=== PATIENT | female | born 1985 | race Caucasian/White ===

== ENCOUNTER 2020-04-20 17:54 | Emergency (ER) | payer SELFPAY ==
[~2020-04-20] VITALS: Ht 170.2 cm; Wt 104.5 kg
--- NOTE | 2020-04-20 19:24 | ED.ADGEN ---
Past Medical History Past Medical History: Hypothyroid, Other Additional Past Medical Histor: Iron deficiency, Fluid retention Past Surgical History: No Surgical History Smoking Status: Never Smoker Alcohol Use: None Drug Use: None General Adult EDM: Chief Complaint: UPPER EXTREMITY PAIN HPI: HPI: Patient is a 34 year old female with pain in right antecubital fossa after d onating plasma earlier today. Says the pain started when they tried to insert the needle and the nurse had a difficult time accessing the vein. Says the pain is sharp and throbbing and feels like it is into the elbow. Pain is improved with ice. Patient also complain about 1 year of lower extremity edema. Was put on furosemide without improvement. Review of Systems: Review of Systems: Constitutional: Denies fever or chills. [] Eyes: Denies change in visual acuity. [] HENT: Denies nasal congestion or sore throat. [] Respiratory: Denies cough or shortness of breath. [] Cardiovascular: Denies chest pain but has lower extremity edema GI: Denies abdominal pain, nausea, vomiting, bloody stools or diarrhea. [] : Denies dysuria. [] Musculoskeletal: Denies back pain or joint pain. [] Right antecubital fossa. Integument: Denies rash. [] Neurologic: Denies headache, focal weakness or sensory changes. [] Endocrine: Denies polyuria or polydipsia. [] Lymphatic: Denies swollen glands. [] Psychiatric: Denies depression or anxiety. [] Allergies: Allergies: Allergies Coded Allergies Type Severity Reaction Last Updated Verified No Known Drug Allergies 07/15/15 No Physical Exam: PE: Constitutional: Well developed, well nourished, no acute distress, non-toxic appearance. [] HENT: Normocephalic, atraumatic, bilateral external ears normal, oropharynx moist, no oral exudates, nose normal. [] Eyes: PERRLA, EOMI, conjunctiva normal, no discharge. [] Neck: Normal range of motion, no tenderness, supple, no stridor. [] Cardiovascular:Heart rate regular rhythm, no murmur [] bilateral lower extremity pitting edema, symmetric pulses Lungs & Thorax: Bilateral breath sounds clear to auscultation [] Abdomen: Bowel sounds normal, soft, no tenderness, no masses, no pulsatile masses. [] Skin: Warm, dry, no erythema, no rash. [] Back: No tenderness, no CVA tenderness. [] Extremities: No tenderness, no cyanosis, no clubbing, ROM intact, bilateral lower extremity edema Neurologic: Alert and oriented X 3, normal motor function, normal sensory function, no focal deficits noted. [] Psychologic: Affect normal, judgement normal, mood normal. [] Current Patient Data: Labs: Laboratory Tests Test 04/20/20 20:15 04/20/20 20:50 Urine Collection Type Void Urine Color Yellow Urine Clarity Clear Urine pH 7.0 (<5.0-8.0) Urine Specific [place] 1.015 (1.000-1.030) Urine Protein Negative mg/dL (NEG-TRACE) Urine Glucose (UA) Negative mg/dL (NEG) Urine Ketones (Stick) Negative mg/dL (NEG) Urine Blood Negative (NEG) Urine Nitrite Negative (NEG) Urine Bilirubin Negative (NEG) Urine Urobilinogen Dipstick 0.2 mg/dL (0.2 mg/dL) Urine Leukocyte Esterase Negative (NEG) Urine RBC 0 /HPF (0-2) Urine WBC Rare /HPF (0-4) Urine Squamous Epithelial Cells Few /LPF Urine Bacteria Moderate /HPF (0-FEW) White Blood Count 10.3 x10^3/uL (4.0-11.0) Red Blood Count 3.89 x10^6/uL (3.50-5.40) Hemoglobin 11.4 g/dL (12.0-15.5) L Hematocrit 33.6 % (36.0-47.0) L Mean Corpuscular Volume 86 fL (79-100) Mean Corpuscular Hemoglobin 29 pg (25-35) Mean Corpuscular Hemoglobin Concent 34 g/dL (31-37) Red Cell Distribution Width 13.9 % (11.5-14.5) Platelet Count 213 x10^3/uL (140-400) Neutrophils (%) (Auto) 70 % (31-73) Lymphocytes (%) (Auto) 22 % (24-48) L Monocytes (%) (Auto) 6 % (0-9) Eosinophils (%) (Auto) 1 % (0-3) Basophils (%) (Auto) 1 % (0-3) Neutrophils # (Auto) 7.2 x10^3/uL (1.8-7.7) Lymphocytes # (Auto) 2.3 x10^3/uL (1.0-4.8) Monocytes # (Auto) 0.6 x10^3/uL (0.0-1.1) Eosinophils # (Auto) 0.1 x10^3/uL (0.0-0.7) Basophils # (Auto) 0.1 x10^3/uL (0.0-0.2) D-Dimer (Radha) 0.34 ug/mlFEU (0.00-0.50) Sodium Level 141 mmol/L (136-145) Potassium Level 3.7 mmol/L (3.5-5.1) Chloride Level 104 mmol/L (98-107) Carbon Dioxide Level 24 mmol/L (21-32) Anion Gap 13 (6-14) Blood Urea Nitrogen 12 mg/dL (7-20) Creatinine 0.7 mg/dL (0.6-1.0) Estimated GFR (Cockcroft-Gault) 95.8 BUN/Creatinine Ratio 17 (6-20) Glucose Level 97 mg/dL (70-99) Calcium Level 8.6 mg/dL (8.5-10.1) Total Bilirubin 0.4 mg/dL (0.2-1.0) Aspartate Amino Transferase (AST) 16 U/L (15-37) Alanine Aminotransferase (ALT) 23 U/L (14-59) Alkaline Phosphatase 40 U/L (46-116) L IB-Ibq-L-Type Natriuretic Peptide 82 pg/mL (0-124) Total Protein 6.0 g/dL (6.4-8.2) L Albumin 3.2 g/dL (3.4-5.0) L Albumin/Globulin Ratio 1.1 (1.0-1.7) Thyroid Stimulating Hormone (TSH) 11.033 uIU/mL (0.358-3.74) H Laboratory Tests 04/20/20 20:50 Laboratory Tests 04/20/20 20:50 Vital Signs: Vital Signs Date Time Temp Pulse Resp B/P (MAP) Pulse Ox O2 Delivery O2 Flow Rate FiO2 04/20/20 18:05 97.7 97 18 142/92 (109) 99 Room Air 97.7 EKG: EKG: [] Heart Score: Risk Factors: Risk Factors: DM, Current or recent (<one month) smoker, HTN, HLP, family history of CAD, obesity. Risk Scores: Score 0 - 3: 2.5% MACE over next 6 weeks - Discharge Home Score 4 - 6: 20.3% MACE over next 6 weeks - Admit for Clinical Observation Score 7 - 10: 72.7% MACE over next 6 weeks - Early Invasive Strategies Radiology/Procedures: Radiology/Procedures: PROCEDURE: VENOUS UPPER EXTREMITY RIGHT Right upper Extremity Venous Doppler Ultrasound History: right arm pain Comparison: None Procedure: Color flow, duplex, spectral analysis and 2D images are obtained with and without compression in the area of the deep and superficial venous structures of the upper , specifically the axillary, brachials, radial and ulnar deep veins and the superficial basilic and cephalic veins. Color Doppler and venous waveform analysis was also applied to the left jugular and subclavian vein. Findings: There is normal duplex flow, color flow and compressibility of all visualized vein segments. No evidence of deep venous thrombus is present. Impression: Normal venous Doppler ultrasound with no evidence of DVT. [] Course & Med Decision Making: Course & Med Decision Making Pertinent Labs and Imaging studies reviewed. (See chart for details) Patient is taking a low-dose of levothyroxine does not know dose. Discussed her TSH is elevated and she will need to follow-up with a primary for further evaluation and possible increase in her medication. Work-up otherwise unremarkable. Arm symptoms improving and localized, no compromise of distal extremity or signs of hematoma. Patient requesting a prescription for her inhaler refill for asthma [] Dragon Disclaimer: Dragon Disclaimer: This electronic medical record was generated, in whole or in part, using a voice recognition dictation system. Departure Departure Impression: Primary Impression: Arm pain Additional Impression: Elevated TSH Disposition: 01 DC HOME SELF CARE/HOMELESS Condition: STABLE Referrals: NO PCP (PCP) Patient Instructions: Peripheral Edema Additional Instructions: [facility] [address] [place] [address] [facility] [address] [place] [address] [place] [address] [facility] [address] [address] [facility] [address] [place] [address] [facility] [place] [address] [place] [address] [address] [place] [address] [facility] [address] [place] [address] [facility] [address] [place] [address] [facility] [address] [place] [address] Scripts Albuterol Sulfate (PROAIR HFA INHALER) 8.5 Gm Hfa.aer.ad 2 PUFF IH PRN Q4-6HRS PRN for wheezing for 21 Days, #1 INHALER 0 Refills Prov: SANKET GARCIA MD 04/20/20 Problem Qualifiers SANKET GARCIA MD Apr 20, 2020 19:24
--- NOTE | 2020-04-20 20:02 | RAD ---
Right upper Extremity Venous Doppler Ultrasound History: right arm pain Comparison: None Procedure: Color flow, duplex, spectral analysis and 2D images are obtained with and without compression in the area of the deep and superficial venous structures of the upper , specifically the axillary, brachials, radial and ulnar deep veins and the superficial basilic and cephalic veins. Color Doppler and venous waveform analysis was also applied to the left jugular and subclavian vein. Findings: There is normal duplex flow, color flow and compressibility of all visualized vein segments. No evidence of deep venous thrombus is present. Impression: Normal venous Doppler ultrasound with no evidence of DVT. Electronically signed by: Jan Riggins III, MD (04/20/2020 7:59 PM) [facility]
[2020-04-20 20:23] LABS: BILIRUBIN,URINE NEGATIVE (NEG); CLARITY,URINE CLEAR; COLOR,URINE YELLOW; NITRITE,URINE NEGATIVE (NEG); PROTEIN,URINE NEGATIVE (NEG-TRACE); UROBILINOGEN,URINE 0.2 mg/dL (0.2 mg/dL)
[2020-04-20 20:29] LABS: BACTERIA,URINE MODERATE /HPF (0-FEW)
[2020-04-20 20:30] LABS: RBC,URINE 0 /HPF (0-2); WBC,URINE RARE /HPF (0-4)
[2020-04-20 21:00] LABS: BASO # 0.1 x10^3/uL (0.0-0.2); BASO % 1 % (0-3); EOS # 0.1 x10^3/uL (0.0-0.7); EOS % 1 % (0-3); HEMATOCRIT 33.6 % (36.0-47.0); HEMOGLOBIN 11.4 g/dL (12.0-15.5); LYMPH # 2.3 x10^3/uL (1.0-4.8); LYMPH % 22 % (24-48); MEAN CORPUSCULAR HEMOGLOBIN 29 pg (25-35); MEAN CORPUSCULAR HGB CONC 34 g/dL (31-37); MEAN CORPUSCULAR VOLUME 86 fL (79-100); MONO # 0.6 x10^3/uL (0.0-1.1); MONO % 6 % (0-9); NEUT # 7.2 x10^3/uL (1.8-7.7); NEUT % 70 % (31-73); PLATELET COUNT 213 x10^3/uL (140-400); RED BLOOD COUNT 3.89 x10^6/uL (3.50-5.40); RED CELL DISTRIBUTION WIDTH 13.9 % (11.5-14.5); WHITE BLOOD COUNT 10.3 x10^3/uL (4.0-11.0)
[2020-04-20 21:27] LABS: CALCIUM 8.6 mg/dL (8.5-10.1); CREATININE 0.7 mg/dL (0.6-1.0); GFR 95.8; POTASSIUM 3.7 mmol/L (3.5-5.1)
[2020-04-20 21:32] LABS: ALBUMIN 3.2 g/dL (3.4-5.0); ALBUMIN/GLOBULIN RATIO 1.1 (1.0-1.7); TOTAL BILIRUBIN 0.4 mg/dL (0.2-1.0)
[2020-04-20 21:58] VITALS: BP 131/74
[2020-04-20] MEDS ORDERED: ALBU2.5V8 IH (22:00)
== END 2020-04-20 22:08 | disposition home or self-care (01) ==
LOC: ER 17:54
DX: M79.601 Pain in right arm (principal); R60.0 Localized edema; R79.89 Other specified abnormal findings of blood chemistry; E03.9 Hypothyroidism, unspecified
CPT/HCPCS: 36415; 80053; 81001; 83880; 84443; 85025; 85379; 87086; 93971; 99284

== ENCOUNTER 2020-07-07 12:41 | Emergency (ER) | payer BC, OTHER ==
[~2020-07-07] VITALS: Ht 167.6 cm; Wt 109.5 kg
[~2020-07-07 12:41] MED LIST: ALBU2.5V8 IH
[2020-07-07 12:57] VITALS: BP 135/78
--- NOTE | 2020-07-07 13:32 | PHYS DOC ---
Past Medical History Past Medical History: Hypothyroid, Other Additional Past Medical Histor: Iron deficiency, Fluid retention Past Surgical History: Other Additional Past Surgical Histo: left arm fx repair Smoking Status: Never Smoker Alcohol Use: None Drug Use: None General Adult EDM: Chief Complaint: HAND PROBLEM HPI: HPI: Patient is a 34 year old female who presents to the ED today complaining of 5 out of 10 left hand pain mostly on the lateral aspect of the hand that began yesterday after she got hit by a chair. 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 She states one of the children was about to throw a chair at the window, she states she blocked the chair and got hit by the chair. Patient is right-handed. States the pain is worse on touching her hand and range of motion. Describes the pain as sharp and intermittent. Denies anything specifically relieving the pain. Review of Systems: Review of Systems: Constitutional: Denies fever or chills. [] Musculoskeletal: reports right hand pain Integument: Denies rash. [] Neurologic: Denies headache, focal weakness or sensory changes. [] Psychiatric: Denies depression or anxiety. [] Heart Score: Risk Factors: Risk Factors: DM, Current or recent (<one month) smoker, HTN, HLP, family history of CAD, obesity. Risk Scores: Score 0 - 3: 2.5% MACE over next 6 weeks - Discharge Home Score 4 - 6: 20.3% MACE over next 6 weeks - Admit for Clinical Observation Score 7 - 10: 72.7% MACE over next 6 weeks - Early Invasive Strategies Allergies: Allergies: Allergies Coded Allergies Type Severity Reaction Last Updated Verified No Known Drug Allergies 07/07/20 No Physical Exam: PE: Constitutional: Well developed, well nourished, no acute distress, non-toxic appearance. [] Skin: Warm, dry, no erythema, no rash. [] Back: No tenderness, no CVA tenderness. [] Extremities: Left hand with no obvious deformity. Mild soft tissue swelling noted on the dorsal aspect of the hand with tenderness diffusely throughout the dorsal aspect of the hand worse on the index finger and thumb mid phalanx. Full range of motion to the left hand and fingers. +2 left radial pulse. Cap refill less than 2 seconds in left fingers. Adequate radial, medial, ulnar sensation to the left hand. Neurologic: Alert and oriented X 3, normal motor function, normal sensory function, no focal deficits noted. [] Psychologic: Affect normal, judgement normal, mood normal. [] Current Patient Data: Vital Signs: Vital Signs Date Time Temp Pulse Resp B/P (MAP) Pulse Ox O2 Delivery O2 Flow Rate FiO2 07/07/20 12:57 98.0 76 18 135/78 (97) 99 Room Air 98.0 EKG: EKG: [] Radiology/Procedures: Radiology/Procedures: []PROCEDURE: HAND LEFT 3V EXAMINATION: XR HAND_LEFT 3 VIEWS CLINICAL HISTORY: Left hand pain between 1st and 2nd digit. Unable to straighten fingers TECHNIQUE: XR HAND_LEFT 3 VIEWS Number of Images/Views: 3 COMPARISON: None FINDINGS: Joint spaces and alignment maintained. No acute fracture. Subcutaneous edema along the dorsal hand. IMPRESSION: No acute osseous abnormality left hand. Electronically signed by: Emiliano Zhang DO (07/07/2020 1:44 PM) [id number] DICTATED and SIGNED BY: EMILIANO ZHANG DO DATE: 07/07/20 [id number] 0 Course & Med Decision Making: Course & Med Decision Making Pertinent Labs and Imaging studies reviewed. (See chart for details) This is a 34-year-old female patient presented to the ED today with left hand injury, patient got hit by a chair. Left hand x-rays interpreted by radiologist are negative for any acute findings. Eber bandage applied to the left hand by me, neurovascular exam is intact. Ice elevation encouraged. Follow-up with orthopedic doctor in 1 week if pain persist. OTC pain relievers recommended. Dragon Disclaimer: Rolan Disclaimer: This electronic medical record was generated, in whole or in part, using a voice recognition dictation system. Departure Departure Impression: Primary Impression: Contusion of left hand Qualified Codes: S60.222A - Contusion of left hand, initial encounter Disposition: 01 DC HOME SELF CARE/HOMELESS Condition: STABLE Referrals: NO PCP (PCP) TAYLOR CABRAL MD follow up in 1-2 weeks Patient Instructions: Contusion, [id number] Additional Instructions: You have left hand contusion, your left hand x-rays are negative for any acute findings. Try to ice and elevate the extremity. You can take [id number] pain relievers especially anti-inflammatories like ibuprofen as needed for pain. Follow-up with orthopedic doctor or your own doctor in 1 to 2 weeks if pain persist ONDINA SOTO APRN Jul 07, 2020 13:32
--- NOTE | 2020-07-07 13:46 | RAD ---
EXAMINATION: XR HAND_LEFT 3 VIEWS CLINICAL HISTORY: Left hand pain between 1st and 2nd digit. Unable to straighten fingers TECHNIQUE: XR HAND_LEFT 3 VIEWS Number of Images/Views: 3 COMPARISON: None FINDINGS: Joint spaces and alignment maintained. No acute fracture. Subcutaneous edema along the dorsal hand. IMPRESSION: No acute osseous abnormality left hand. Electronically signed by: Emiliano Clark DO (07/07/2020 1:44 PM) [id number]
== END 2020-07-07 14:26 | disposition home or self-care (01) ==
LOC: ER 12:41
DX: S60.222A Contusion of left hand, initial encounter (principal); E03.9 Hypothyroidism, unspecified; W22.03XA Walked into furniture, initial encounter; Y93.89 Activity, other specified; Y92.89 Other specified places as the place of occurrence of the external cause; Y99.8 Other external cause status
CPT/HCPCS: 73130; 99283

== ENCOUNTER 2020-10-20 16:52 | Emergency (ER) | payer SELFPAY ==
[~2020-10-20] VITALS: Ht 165.1 cm; Wt 90.9 kg
--- NOTE | 2020-10-20 18:10 | PHYS DOC ---
Past Medical History Past Medical History: Hypothyroid, Other Additional Past Medical Histor: Iron deficiency, Fluid retention Past Surgical History: Other Additional Past Surgical Histo: left arm fx repair Smoking Status: Never Smoker Alcohol Use: None Drug Use: None General Adult EDM: Chief Complaint: SHORTNESS OF BREATH HPI: HPI: Patient is a 35-year-old female presenting for URI-like symptoms. Reports she was exposed to young niece 2 days ago that had similar URI-like symptoms and ever since, she reports development of rhinorrhea, postnasal drip, dry nonproductive cough, and fatigue. She reports she did have an isolated fever taken earlier today that was 101.0, this resolved with acle-tam-mnyiaut Sudafed. She is otherwise healthy, no known medical issues, does not take any medications on a daily basis, does not smoke, no other drug use, no history or risk factors for blood clots such as estrogen use, recent long distance travel, hemoptysis etc. No personal history of passing out with sports, no family history of cardiac disease Review of Systems: Review of Systems: Fourteen body systems of review of systems have been reviewed. See HPI for pertinent positives and negative responses, other hutton all other systems are negative, non-pertinent or non-contributory Heart Score: C/O Chest Pain: No HEART Score for Chest Pain: HEART Score for Chest Pain Response (Comments) Value History Slighlty/Non-Suspicious 0 ECG Normal 0 Age < 45 0 Risk Factors No Risk Factors 0 Total 0 Risk Factors: Risk Factors: DM, Current or recent (<one month) smoker, HTN, HLP, family history of CAD, obesity. Risk Scores: Score 0 - 3: 2.5% MACE over next 6 weeks - Discharge Home Score 4 - 6: 20.3% MACE over next 6 weeks - Admit for Clinical Observation Score 7 - 10: 72.7% MACE over next 6 weeks - Early Invasive Strategies Allergies: Allergies: Allergies Coded Allergies Type Severity Reaction Last Updated Verified No Known Drug Allergies 07/07/20 No Physical Exam: PE: General: Appears well, non toxic, and comfortable Skin: Warm, dry. Normal for ethnicity. HEENT: Atraumatic. PERRLA. Rhinorrhea and congestion. Nasal turbinates boggy b/l. Moist mucous membranes. Uvula midline. Maintaining secretions. No phonation changes. Neck: Trachea midline. Normal ROM. No stridor. Respiratory: Normal WOB. CTAB w/o w/r/r. No tachypnea. Cardiovascular: Regular rate and rhythm. Normal peripheral perfusion. Abdomen: Soft. Non tender. No distension. Back: Normal ROM. Musculoskeletal: No swelling or deformity. Neuro: Alert and oriented x 4. MAEE. Lymph: No cervical LAD. Psych: Normal affect and mood. Current Patient Data: Labs: Laboratory Tests Test 10/20/20 17:53 POC Urine HCG, Qualitative Hcg negative (Negative) EKG: EKG: EKG ordered and interpreted by myself at 1850 hrs. as sinus rhythm at 81 bpm, unremarkable intervals, no axis deviation, no ischemic findings, no STEMI Radiology/Procedures: Radiology/Procedures: XR CHEST 1V Clinical History: Reason: shob / Spl. Instructions: / History: Technique: AP view of the chest was obtained at 10/20/2020 6:49 PM. Comparison: None. Findings: The cardiomediastinal silhouette is normal. The pulmonary vasculature is normal. There is subtle patchy opacity in the lower lungs. The pleural margins are clear. Impression: No evidence of an acute cardiopulmonary process. Electronically signed by: Jan Riggins III, MD (10/20/2020 7:03 PM) [facility] Course & Med Decision Making: Course & Med Decision Making VSS. HPI and PE non-concerning for emergent/surgical issues, likely viral syndrome ER workup unremarkable. Offered COVID-19 testing, patient tested and results pending. Self-quarantine instructions given with strict return precautions Rolan Disclaimer: Rolan Disclaimer: This electronic medical record was generated, in whole or in part, using a voice recognition dictation system. PERC Rule for PE PERC Rule for PE Response (Comments) Value Age > 50: No 0 HR > 100: No 0 Sa02 on room air <95%: No 0 Unilateral leg swelling: No 0 Hemoptysis: No 0 Recent surgery or trauma: No 0 Prior PE or DVT: No 0 Hormone use: No 0 Total 0 Departure Departure Impression: Primary Impression: Viral syndrome Additional Impressions: Person under investigation for COVID-19 Fever Disposition: HOME / SELF CARE / HOMELESS Condition: STABLE Referrals: NO PCP (PCP) Patient Instructions: Viral Syndrome Additional Instructions: You were seen for fever, upper respiratory symptoms, and possible infection with COVID-19. Your physical exam was reassuring. Your chest x-ray was normal. We tested you for COVID-19 but this test does not come back for 1 to 2 days. In the meantime you need to quarantine yourself at home away from all other individuals, especially those who are elderly or have any other chronic health issues or an immunocompromised status. As disclose, there is little indication for further diagnostic work-up in ER such as laboratory analysis and further diagnostic studies for pathology such as blood clots etc. With that said, this might be an acute presentation of more concerning pathology and so, if your symptoms worsen do not hesitate to come back for repeat evaluation. You should return to the ED if you develop worsening cough, shortness of breath, chest pain, or any other new or concerning symptoms. Alternate Tylenol and ibuprofen as needed for body aches and pain. If your test does come back positive you need to quarantine yourself for 10 days until symptom-free. You should make sure to drink plenty of fluids and get plenty of rest. Scripts Albuterol Sulfate (PROAIR HFA INHALER) 8.5 Gm Hfa.aer.ad 2 PUFF IH PRN Q4-6HRS PRN for wheezing for 21 Days, #1 INHALER 0 Refills Prov: NUHA ALCANTAR DO 10/20/20 Fluticasone Propionate (Flonase Allergy Relief) 9.9 Ml [place].susp 2 SPRAYS NS DAILY, #1 ML Prov: NUHA ALCANTAR DO 10/20/20 Cetirizine Hcl (ZYRTEC) 10 Mg Tablet 1 TAB PO DAILY, #30 TAB 0 Refills Prov: NUHA ALCANTAR DO 10/20/20 NUHA ALCANTAR DO October 20, 2020 18:10
[2020-10-20] MEDS ORDERED: ACETAMINOPHEN 500 MG TABLET PO ONE (18:30)
--- NOTE | 2020-10-20 19:06 | RAD ---
XR CHEST 1V Clinical History: Reason: shob / Spl. Instructions: / History: Technique: AP view of the chest was obtained at 10/20/2020 6:49 PM. Comparison: None. Findings: The cardiomediastinal silhouette is normal. The pulmonary vasculature is normal. There is subtle patc hy opacity in the lower lungs. The pleural margins are clear. Impression: No evidence of an acute cardiopulmonary process. Electronically signed by: Jan Riggins III, MD (10/20/2020 7:03 PM) [facility]
--- NOTE | 2020-10-20 19:49 | EKG ---
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
[2020-10-20] MEDS ORDERED: ALBU2.5V8 IH (20:00)
[2020-10-20] MEDS ORDERED: CETI10TA74 PO (20:00)
[2020-10-20] MEDS ORDERED: FLUT9.9S NS (20:00)
[2020-10-20 20:20] VITALS: BP 120/72
--- NOTE | 2020-10-22 08:27 | NUR ---
IP: Attempted to contact pt concerning COVID results. No answer, left a voicemail to return the call.
--- NOTE | 2020-10-22 14:42 | NUR ---
IP: Informed pt of positive COVID test and the need to quarantine for 10 days. Pt verbalized understanding.
== END 2020-10-20 20:53 | disposition home or self-care (01) ==
LOC: ER 16:52
DX: U07.1 COVID-19 (principal); B34.9 Viral infection, unspecified; E03.9 Hypothyroidism, unspecified
CPT/HCPCS: 71045; 81025; 93005; 99285; U0003; U0005

== ENCOUNTER 2021-05-21 17:36 | Emergency (ER) | payer BC ==
[~2021-05-21] VITALS: Ht 162.6 cm; Wt 97.5 kg
[~2021-05-21 17:36] MED LIST changes: +CETI10TA74 PO; +FLUT9.9S NS
[2021-05-21 18:23] VITALS: BP 110/66
--- NOTE | 2021-05-21 19:14 | RAD ---
Right lower extremity venous Doppler ultrasound History: Reason: cellulitis RLE / Comparison: None. Procedure: Color flow Doppler, Doppler spectral analysis, and 2D images are obtained with and without compression in the area of the common femoral vein, superficial femoral vein - femoral vein junction , main femoral vein (superficial femoral vein) and popliteal vein. Veins of the proximal calf are als o imaged. Findings: There is normal color flow, augmentation, and compressibility of all visualized vein segments. No cory dence of deep venous thrombus is present. There are a few prominent but not pathologically enlarged right inguinal lymph nodes. No cortical thi ckening is seen. IMPRESSION: No evidence of right lower extremity deep venous thrombosis. Electronically signed by: Ray Benitez MD (05/21/2021 7:12 PM) [facility]
[2021-05-21] MEDS: LIDOCAINE 1% PF 2 ML VIAL. INJ ONE (19:37)
[2021-05-21] MEDS: ACYCLOVIR 200 MG CAPSULE. PO STA (19:37)
[2021-05-21] MEDS: cefTRIAXone IM 1 GM VIAL IM ONE (19:37)
[2021-05-21] MEDS ORDERED: NYST15PO9 TP (19:57)
[2021-05-21] MEDS ORDERED: CEPH500T PO (19:57)
[2021-05-21] MEDS ORDERED: SULF1TAB23 PO (19:57)
[2021-05-21] MEDS ORDERED: ACYC800T88 PO (19:57)
[2021-05-21] MEDS ORDERED: DOCO2CRE7 TP (19:57)
--- NOTE | 2021-05-21 19:58 | PHYS DOC ---
Past Medical History Past Medical History: Hypothyroid, Other Additional Past Medical Histor: Iron deficiency, Fluid retention ([employer]) Past Surgical History: Other Additional Past Surgical Histo: left arm fx repair ([employer] DES[employer]) Smoking Status: Never Smoker Alcohol Use: None Drug Use: None ([employer] DES[employer]) General Adult EDM: Chief Complaint: LOWER EXTREMITY SWELLING HPI: HPI: Patient is a 35 year old female who presents to the ED today complaining of rig ht lower extremity redness, swelling, symptoms began yesterday. Patient denies any trauma. Denies any fever. She is also complaining of a cold sore that began yesterday. Denies any fever. ([employer] DES[employer]) Review of Systems: Review of Systems: Constitutional: Denies fever or chills. []. [] HENT: Reports cold sore. Denies nasal congestion or sore throat. [] Musculoskeletal: Denies back pain or joint pain. [] Integument: Reports right lower extremity redness, swelling Neurologic: Denies headache, focal weakness or sensory changes. [] Psychiatric: Denies depression or anxiety. [] ([employer] DES[employer]) Heart Score: C/O Chest Pain: N/A Risk Factors: Risk Factors: DM, Current or recent (<one month) smoker, HTN, HLP, family history of CAD, obesity. Risk Scores: Score 0 - 3: 2.5% MACE over next 6 weeks - Discharge Home Score 4 - 6: 20.3% MACE over next 6 weeks - Admit for Clinical Observation Score 7 - 10: 72.7% MACE over next 6 weeks - Early Invasive Strategies ([employer]) Current Medications: Current Medications Medications (Trade) Dose Ordered Sig/Laurie Start Time Stop Time Status Last Admin Dose Admin Acyclovir (Zovirax) 400 mg 1X STAT 05/21/21 19:30 05/21/21 19:32 DC 05/21/21 19:37 400 MG Ceftriaxone Sodium (Rocephin Im) 1 gm 1X ONCE 05/21/21 19:30 05/21/21 19:32 DC 05/21/21 19:37 1 GM Lidocaine HCl (Xylocaine-Mpf 1% 2ml Vial) 2 ml 1X ONCE 05/21/21 19:30 05/21/21 19:32 DC 05/21/21 19:37 2 ML ([employer]) Allergies: Allergies: Allergies Coded Allergies Type Severity Reaction Last Updated Verified No Known Drug Allergies 07/07/20 No (BRITTANY[employer]INA [employer]) Physical Exam: PE: Constitutional: Well developed, well nourished, no acute distress, non-toxic appearance. [] HENT: Normocephalic, atraumatic, bilateral external ears normal, oropharynx moist, no oral exudates, nose normal. [] Right lateral lips with a cluster of blisters consistent with cold sore Skin: Right luna with moderate erythema consistent with cellulitis. Posterior right lower extremity with cellulitis as well. There is an area of swelling on the right luna and a couple of open tiny wound on the right luna. Trace edema noted to the right lower extremity. +2 right pedal pulse. Negative Homans' sign to the right lower extremity. Fungal infection noted on the right foot, patient states is chronic. Range of motion is intact to the right lower extremity. Back: No tenderness, no CVA tenderness. [] Extremities: Please see skin documentation Neurologic: Alert and oriented X 3, normal motor function, normal sensory function, no focal deficits noted. [] Psychologic: Affect normal, judgement normal, mood normal. [] ([employer]) Current Patient Data: Labs: Laboratory Tests Test 05/21/21 17:51 POC Urine HCG, Qualitative Hcg negative (Negative) Vital Signs: Vital Signs Date Time Temp Pulse Resp B/P (MAP) Pulse Ox O2 Delivery O2 Flow Rate FiO2 05/21/21 18:23 76 18 110/66 (81) 99 Room Air 05/21/21 17:45 98.7 98.7 ([employer]) EKG: EKG: [] ([employer]) Radiology/Procedures: Radiology/Procedures: []PROCEDURE: VENOUS LOWER EXTREMITY RIGHT Right lower extremity venous Doppler ultrasound History: Reason: cellulitis RLE / Comparison: None. Procedure: Color flow Doppler, Doppler spectral analysis, and 2D images are obtained with and without compression in the area of the common femoral vein, superficial femoral vein - femoral vein junction, main femoral vein (superficial femoral vein) and popliteal vein. Veins of the proximal calf are also imaged. Findings: There is normal color flow, augmentation, and compressibility of all visualized vein segments. No evidence of deep venous thrombus is present. There are a few prominent but not pathologically enlarged right inguinal lymph nodes. No cortical thickening is seen. IMPRESSION: No evidence of right lower extremity deep venous thrombosis. Electronically signed by: Ray Benitez MD (05/21/2021 7:12 PM) [facility] DICTATED and SIGNED BY: RAY BENITEZ MD DATE: 05/21/[id number] 0 ([employer]INA SOTO APRN) Course & Med Decision Making: Course & Med Decision Making Pertinent Labs and Imaging studies reviewed. (See chart for details) This is a 35-year-old female patient presented to the ED today with right lower extremity redness consistent with cellulitis. Venous Doppler of the right lower extremity is negative. She was given Rocephin IM in the ED. She was discharged on Bactrim and cephalexin. Follow-up with PCP in 1 week. Provided return precautions. She is also complaining of a cold sore. She was discharged on acyclovir and Abreva ([employer] SOTO APRN) Course & Med Decision Making Patients Care and treatment plan provided by ER Nurse Practitioner. I was available for consult. Patient's chart reviewed. (MOR CEDILLO DO) Rolan Disclaimer: Rolan Disclaimer: This electronic medical record was generated, in whole or in part, using a voice recognition dictation system. ([employer] SOTO APRN) Departure Departure Impression: Primary Impression: Cellulitis of lower limb Qualified Codes: L03.115 - Cellulitis of right lower limb Additional Impressions: Athlete's foot on right Herpes labialis Disposition: HOME / SELF CARE / HOMELESS Condition: STABLE Referrals: NO PCP (PCP) Follow-up with your doctor in 1 week Patient Instructions: Athlete's Foot, [id number], Cellulitis, [id number], Cold Sore, [id number] Additional Instructions: You were evaluated in the emergency room for cellulitis of the right lower extremity. Please take the prescribed antibiotics until completed. You can take Tylenol or Motrin for pain or fever. You can wash your right lower extremity with regular soap and water. Try and keep the right lower extremity elevated. Take the prescribed acyclovir and use Abreva for the cold sore. Follow-up with your doctor in 1 week. Come back to the ED at any point symptoms worsen, use the prescribed nystatin on your feet as well as in your shoes for the fungal infection Scripts Cephalexin (CEPHALEXIN) 500 Mg Tablet 1 TAB PO TID, #30 TAB Prov: ONDINA SOTO EUSEBIO 05/21/21 Sulfamethoxazole/Trimethoprim (BACTRIM 400-80 MG TABLET) 1 Each Tablet 1 TAB PO BID for 10 Days, #20 TAB 0 Refills Prov: OND[employer] 05/21/21 Acyclovir (ACYCLOVIR) 800 Mg Tablet 1 TAB PO 5XDAY, #50 TAB Prov: ONDINA SOTO [employer] 05/21/21 Nystatin (NYSTATIN) 15 Gm Powder 1 CRISTINO TP BID, #1 BOTTLE 3 Refills Please apply to feet and shoes Prov: BRITTANYONDINA [employer] 05/21/21 Docosanol (ABREVA) 2 Gm Cream..g. 1 CRISTINO TP Q2HR W/A, #1 EACH Prov: ONDINA SOTO Aureliano [employer] 05/21/21 ONDINA SOTO EUSEBIO May 21, 2021 19:58 MOR CEDILLO DO May 22, 2021 03:42
== END 2021-05-21 20:09 | disposition home or self-care (01) ==
LOC: ER 17:36
DX: L03.115 Cellulitis of right lower limb (principal); B00.1 Herpesviral vesicular dermatitis; B35.3 Tinea pedis; E03.9 Hypothyroidism, unspecified
CPT/HCPCS: 81025; 93971; 96372; 99284; J0696; J3490